=== PATIENT | male | born 1980 | race Two or more races ===

== ENCOUNTER 2024-04-29 11:01 | Inpatient (IN) | payer MEDICAID, OTHER ==
[~2024-04-29] VITALS: Ht 175.3 cm; Wt 97.9 kg
--- NOTE | 2024-04-29 11:17 | ED.PDOC ---
HPI Comments 43y M who presents to the ED for chief complaint of palpitations. Pt states he was sleeping this AM, and started to have palpitations that woke him from his sleep. Pt states his palpitations have been constant since and states he started to have chest pain and came to the ED for further evaluation. Pt in the ED, has chest pain while taking deep breaths but otherwise denies any other exacerbating or relieving factors/ Pt otherwise denies any recent travel. Pt otherwise has noted history of HTN and denies these symptoms in the past. Pt otherwise denies shortness of breath, cough, fever, chills, headache, or dizziness. Pt otherwise denies any recent sick contacts. Pt denies any other symptoms at this time. Chief Complaint: Chest Pain Time Seen by MD: 11:14 Reviewed Notes: Medications, Allergies Allergies: Coded Allergies: NO KNOWN ALLERGIES (Unverified , 04/29/24) Information Source: Patient, Spouse Mode of Arrival: Ambulatory Brought in by: self Past Medical History PAST MEDICAL HISTORY: HTN Surgical History: Denies all surgeries Family History Family History: Unknown Social History Smoker: Non-Smoker Alcohol: Denies ETOH Use Drugs: Denies Drug Use Lives In: Home Constitutional: denies: chills, diaphoresis, fatigue, fever, malaise, sweats, weakness, others EENTM: denies: blurred vision, double vision, ear bleeding, ear discharge, ear drainage, ear pain, ear ringing, eye pain, eye redness, hearing loss, mouth pain, mouth swelling, nasal discharge, nose bleeding, nose congestion, nose pain, photophobia, tearing, throat pain, throat swelling, voice changes, others Respiratory: denies: cough, hemoptysis, orthopnea, SOB at rest, shortness of breath, SOB with excertion, stridor, wheezing, others Cardiovascular: reports: chest pain, palpitations; denies: dizzy spells, diaphoresis, Dyspnea on exertion, edema, irregular heart beat, left arm pain, lightheadedness, PND, syncope, others Gastrointestinal: denies: abdomen distended, abdominal pain, blood streaked bowels, constipated, diarrhea, dysphagia, difficulty swallowing, hematemesis, melena, nausea, poor appetite, poor fluid intake, rectal bleeding, rectal pain, vomiting, others Genitourinary: denies: burning, dysuria, flank pain, frequency, hematuria, incontinence, penile discharge, penile sore, pain, testicle pain, testicle swelling, urgency, others Neurological: denies: dizziness, fainting, headache, left sided numbness, left sided weakness, numbness, paresthesia, pre-existing deficit, right sided nu mbness, right sided weakness, seizure, speech problems, tingling, tremors, weakness, others Musculoskeletal: denies: back pain, gout, joint pain, joint swelling, muscle pain, muscle stiffness, neck pain, others Integumetry: denies: bruises, change in color, change in hair/nails, dryness, laceration, lesions, lumps, rash, wounds, others Allergic/Immunocompromised: denies: Difficulty Healing, Frequent Infections, Hives, Itching, others Hematologic/Lymphatic: denies: anemia, blood clots, easy bleeding, easy bruising, swollen glands, others Endocrine: denies: excessive hunger, excessive sweating, excessive thirst, excessive urination, flushing, intolerance to cold, intolerance to heat, unexplained weight gain, unexplained weight loss, others Psychiatric: denies: anxiety, bipolar disorder, depression, hopeless, panic disorder, schizophrenia, sleepless, suicidal, others All Other Systems: Reviewed and Negative Physical Exam General Appearance: Moderate Distress, Other (pt is diaphoretic, appears mildly anxious) HEENT: Normal ENT Inspection, Pharynx Normal, TMs Normal Neck: Full Range of Motion, Non-Tender, Normal, Normal Inspection Respiratory: Chest Non-Tender, Lungs Clear, No Accessory Muscle Use, No Respiratory Distress, Normal Breath Sounds Cardiovascular: Tachycardia Breast Exam: Deferred Gastrointestinal: No Organomegaly, Non Tender, No Pulsatile Mass, Normal Bowel Sounds, Soft Genitalia: Deferred Pelvic: Deferred Rectal: Deferred Extremities: Other (no noted calf tenderness) Musculoskeletal : Apperance: Normal Neurologic: Alert, sonar watchstander II-XII nml as Tested, No Motor Deficits, Normal Affect, Normal Mood, No Sensory Deficits Cerebellar Function: Normal Reflexes: Normal Skin: Dry, Normal Color, Warm Lymphatic: No Adenopathy Was a procedure done? Was a procedure done?: No CP Differential Dx Differential Diagnosis: A-fib, A-Flutter, Angina, Anxiety / Panic Attack, Atrial Dysrhythmia, PVC's Differential Diagnosis: HTN Essential, HTN Accelerated Differential Diagnosis: Angina, Chest Wall Pain, Costochondritis, Myocardial Infarction, Pericarditis, Pneumonia, Pneumothorax, Pulmonary Embolus X-Ray, Labs, Meds, VS Vital Signs Date Time Temp Pulse Resp B/P (MAP) Pulse Ox O2 Delivery O2 Flow Rate FiO2 04/29/24 12:20 118 04/29/24 11:31 205/119 04/29/24 11:31 127 205/119 04/29/24 11:28 98.0 98 20 164/123 (137) 96 04/29/24 11:28 130 Lab Test 04/29/24 11:00 Range/Units White Blood Count 11.2 H 4.4-10.8 10^3/uL Red Blood Count 6.29 H 4.5-5.90 10^6/uL Hemoglobin 18.5 H 13.5-17.5 g/dL Hematocrit 53.6 H 41.0-53.0 % Mean Corpuscular Volume 85.1 80.0-100.0 fL Mean Corpuscular Hemoglobin 29.3 28.0-32.0 pg Mean Corpuscular Hemoglobin Concent 34.5 32.0-36.0 g/dL Red Cell Distribution Width 12.9 11.8-14.3 % Platelet Count 248 140-450 10^3/uL Mean Platelet Volume 9.1 6.9-10.8 fL Neutrophils (%) (Auto) 80.3 H 37.0-80.0 % Lymphocytes (%) (Auto) 15.5 10.0-50.0 % Monocytes (%) (Auto) 3.6 0.0-12.0 % Eosinophils (%) (Auto) 0.2 0.0-7.0 % Basophils (%) (Auto) 0.4 0.0-2.0 % Neutrophils # (Auto) 9.0 H 1.6-8.6 10 ^3/uL Lymphocytes # (Auto) 1.7 0.4-5.4 10 ^3/uL Monocytes # (Auto) 0.4 0-1.3 10 ^3/uL Eosinophils # (Auto) 0 0-0.8 10 ^3/uL Basophils # (Auto) 0 0-0.2 10 ^3/uL Nucleated Red Blood Cells 0.1 % Sodium Level 135 L 136-145 mmol/L Potassium Level 4.1 3.5-5.1 mmol/L Chloride Level 101 98-107 mmol/L Carbon Dioxide Level 21 20-31 mmol/L Anion Gap 13 5-15 Blood Urea Nitrogen 11 9-23 mg/dL Creatinine 0.70 0.700-1.30 mg/dL Glomerular Filtration Rate Calc 118 >90 mL/min BUN/Creatinine Ratio 15.7 10.0-20.0 Serum Glucose 280 H 74-106 mg/dL Calcium Level 9.9 8.7-10.4 mg/dL Troponin I High Sensitivity 3 L </=54 ng/L Current Medications Medications (Trade) Dose Ordered Sig/Tonja Route Start Time Stop Time Status Last Admin Metoprolol Tartrate (Lopressor) 5 mg ONCE ONCE IV 04/29/24 11:15 04/29/24 11:16 DC 04/29/24 11:31 Aspirin 325 mg ONCE ONCE PO 04/29/24 11:15 04/29/24 11:16 DC 04/29/24 11:32 Nitroglycerin (Ntrostat Sublingual) 0.4 mg ONCE ONCE SL 04/29/24 11:15 04/29/24 11:16 DC 04/29/24 11:31 Alprazolam (Xanax Tablet) 0.25 mg ONCE ONCE PO 04/29/24 11:15 04/29/24 11:16 DC 04/29/24 11:31 [place] [id number] Ph: [phone] DIAGNOSTIC IMAGING Diagnostic Imaging Report : [id number] Signed PATIENT: STEPHY PARRY ACCT: [id number] UNIT: [id number] : 1980 LOC: ER ROOM / BED: / AGE / SEX: 43 / M ADM STATUS: REG ER SERVICE 1113 ORDERING PHYSICIAN: ANJUM DONOVAN MD PROCEDURE(s): CXRP - CHEST PORTABLE REASON: cp ORDER NUMBER(s): [id number], ACCESSION NUMBER(s): [id number] CHEST RADIOGRAPH Indication: cp Technique: Single frontal view of the chest was obtained Comparison: None FINDINGS: Lines and Tubes: None Lungs: No focal consolidation. Pleura: No effusion. No pneumothorax. Cardiomediastinal contours: Unremarkable Bones: No acute osseous abnormality. IMPRESSION: 1. No acute cardiopulmonary disease. ATED BY: LUIS REES MD DICTATED DATE/TIME: 04/29/24 1138 SIGNED BY: LUIS REES MD SIGNED DATE/TIME: 04/29/248 CC: Time of 1ST Reevaluation: 11:45 Reevaluation 1ST: Unchanged Patient Education/Counseling: Diagnosis, Treatment, Prognosis, Need For Follow Up Family Education/Counseling: Diagnosis, Treatment, Prognosis, Need For Follow Up, No Family Present Additional Information - I reviewed the following notes from patient's past medical encounters: - The following tests were ordered, and results were reviewed by me: (Labs, X- Ray, EKG): troponin x3,EKG x 3, BMP, CBC, chest x-ray, - Additional information was gathered from interviewing the following independent Historian: (Family, Other Providers, EMT): - I reviewed and agreed with the following test results read by other provider: (X-ray, CT, US): radiologist - I discussed treatments and results with medical personnel and: (consultants, family) pt presented diaphoretic, with chest pain, tachycardic. he was given labetalol which improved his symptoms and HR. repeat ekg dose not show dynamic changes. however, he will need to be admitted for further cardiac workups Departure 1 Departure Time of Disposition: 12:28 Impression: Primary Impression: Unstable angina Additional Impression: Tachycardia Disposition: 09 ADMITTED INPATIENT Admit to: Tele Condition: Serious Critical Care Note Critical Care Time?: Yes (45 min-critical care time only) Critical care comment: due to concerns for patient's condition deteriorating, the care required my highest level of attention and readiness to intervene. i reviewed any external notes, communicatd with medical personnel, assessed the pt, ordered the proper tests and treatments, and reassessed for response, formulated a plan of care. the critical care time excludes any procedures Stability Stability form required: No Heart Score Heart Score: Heart Score Response (Comments) Value History Highly Suspicious 2 EKG Repolarization Disturb 1 Age <45 0 Risk Factors 1 or 2 risk factors 1 Troponin Normal limit 0 Total 4 I personally scribed for ANJUM DONOVAN MD ([email or web address]) on 04/29/24 at 11:17. Electronically submitted by Loyda Emanuel ([email or web address]). I personally scribed for ANJUM DONOVAN MD ([facility]) on 04/29/24 at 11:21. Electronically submitted by Loyda Emanuel ([email or web address]). I personally scribed for ANJUM DONOVAN MD ([facility]) on 04/29/24 at 11:42. Electronically submitted by Loyda Emanuel ([email or web address]). ANJUM DONOVAN MD Apr 29, 2024 11:17
[2024-04-29] MEDS: METOPROLOL TARTRATE 1MG/1ML-5ML VIAL IV ONE (11:31)
[2024-04-29] MEDS: NITROGLYCERIN 0.4 MG SL TAB SL ONE (11:31)
[2024-04-29] MEDS: ALPRAZolam 0.25 MG TAB PO ONE (11:31)
[2024-04-29] MEDS: ASPirin 325 MG TAB PO ONE (11:32)
--- NOTE | 2024-04-29 11:40 | DVH ---
CHEST RADIOGRAPH Indication: cp Technique: Single frontal view of the chest was obtained Comparison: None FINDINGS: Lines and Tubes: None Lungs: No focal consolidation. Pleura: No effusion. No pneumothorax. Cardiomediastinal contours: Unremarkable Bones: No acute osseous abnormality. IMPRESSION: 1. No acute cardiopulmonary disease.
[2024-04-29 11:41] LABS: Basophils # (auto) 0 10 ^3/uL (0-0.2); Basophils % (auto) 0.4 % (0.0-2.0); Eosinophils # (auto) 0 10 ^3/uL (0-0.8); Eosinophils % (auto) 0.2 % (0.0-7.0); Hematocrit 53.6 % (41.0-53.0); Hemoglobin 18.5 g/dL (13.5-17.5); Lymphocytes # (auto) 1.7 10 ^3/uL (0.4-5.4); Lymphocytes % (auto) 15.5 % (10.0-50.0); Mean Corpuscular Hemoglobin 29.3 pg (28.0-32.0); Mean Corpuscular Hgb Conc. 34.5 g/dL (32.0-36.0); Mean Corpuscular Volume 85.1 fL (80.0-100.0); Monocytes # (auto) 0.4 10 ^3/uL (0-1.3); Monocytes % (auto) 3.6 % (0.0-12.0); Neutrophils % (auto) 80.3 % (37.0-80.0); Nucleated Red Blood Cells % 0.1 %; Platelet Count (auto) 248 10^3/uL (140-450); Red Blood Cells 6.29 10^6/uL (4.5-5.90); Red Cell Distribution Width 12.9 % (11.8-14.3); White Blood Cell 11.2 10^3/uL (4.4-10.8)
[2024-04-29 11:46] LABS: Chloride 101 mmol/L (98-107); Potassium 4.1 mmol/L (3.5-5.1)
[2024-04-29 11:47] LABS: Anion Gap 13 (5-15); Calcium 9.9 mg/dL (8.7-10.4); Carbon Dioxide 21 mmol/L (20-31)
[2024-04-29 11:52] LABS: BUN/Creatinine Ratio 15.7 (10.0-20.0); Blood Urea Nitrogen 11 mg/dL (9-23)
[2024-04-29 11:59] LABS: Sodium 135 mmol/L (136-145)
[2024-04-29 12:00] LABS: Glucose 280 mg/dL (74-106)
--- NOTE | 2024-04-29 12:21 | ECG ---
[facility] Test Date: 2024-04-29 Test Time: 12:20:07 Pat Name: STEPHY PARRY Department: ER Room: 0249T Gender: M Supervisor Dock: LUL : 1980 Requested By: ANJUM DONOVAN Order Number: [id number] Reading MD: Billy Joaquin Measurements Intervals [place] Rate: 118 P: 40 WA: 145 QRS: 12 QRSD: 84 T: 60 QT: 319 QTc: 448 Interpretive Statements Sinus tachycardia Electronically Signed On 04-30-2024 14:19:23 PST by Billy Joaquin Please click the below link to view image of tracing.
[2024-04-29] MEDS ORDERED: ONDANSETRON HCL 4 MG/2 ML VIAL IV PRN (14:00)
[2024-04-29] MEDS ORDERED: DEXTROSE (50%) 50ML SYRG IV PRN ×2 (14:00→14:45)
[2024-04-29] MEDS ORDERED: NITROGLYCERIN 0.4 MG SL TAB SL PRN ×2 (14:00→14:45)
[2024-04-29] MEDS: SODIUM CHLORIDE 0.9% 1,000 ML IV SCH (14:20)
[2024-04-29 15:03] LABS: INR 1.04 (0.9-1.15)
[2024-04-29 15:07] LABS: Magnesium 1.9 mg/dL (1.6-2.6)
[2024-04-29 15:08] LABS: Phosphorus 3.1 mg/dL (2.4-5.1)
--- NOTE | 2024-04-29 15:31 | DVH ---
EXAM: CT Angiography Chest With Intravenous Contrast CLINICAL INDICATION: R/O PE TECHNIQUE: Axial computed tomographic angiography images of the chest with intravenous contrast. Th is CT exam was performed using one or more of the following dose reduction techniques: automated exp osure control, adjustment of the mA and/or kV according to patient size, and/or use of iterative claudio nstruction technique. MIP reconstructed images were created and reviewed. CONTRAST: 100 cc Omnipaque 350 RADIATION DOSE: CTDlvol= 28 mGy, DLP= 976 mGy-cm COMPARISON: None FINDINGS: LIMITATIONS: Suboptimal opacification of the pulmonary arteries. PULMONARY ARTERIES: No pulmonary embolism is identified. Some of the distal pulmonary arteries mary ot be evaluated due to suboptimal opacification. AORTA: No acute findings. No thoracic aortic aneurysm. LUNGS AND PLEURAL SPACES: Dependent atelectasis. Lingular atelectasis or scarring. No mass. No sig nificant effusion. No pneumothorax. HEART: Unremarkable. No cardiomegaly. No significant pericardial effusion. No evidence of RV dysf unction. BONES/JOINTS: No acute fracture. No dislocation. SOFT TISSUES: Unremarkable. LYMPH NODES: Unremarkable. No enlarged lymph nodes. LIVER: Fatty infiltration of the liver. OTHER FINDINGS: . . IMPRESSION: No pulmonary embolism is identified. Some of the distal pulmonary arteries cannot be evaluated due t o suboptimal opacification. HS:Y
--- NOTE | 2024-04-29 15:54 | DVHINCON2 ---
Date Seen: Apr 29, 2024 Referring Physician MÓNICA Macias Reason for Consultation Acute chest pain evaluate for ACS History of Present Illness This is a pleasant Urdu-speaking mostly male who presented to the emergency room with a chief complaint of palpitations. The patient reports he awoke with a sudden onset of palpitations prompting him to attend the emergency room for further evaluation. Denies chest pain, diaphoresis, shortness of breath, or syncopal events. Per at bedside the patient had a few beers, four-five, last night given festivities. He underwent multiple 12 lead electrocardiogram revealing a sinus tachycardia rhythm suggestive of left ventricular hypertrophy. Serial troponin levels are negative. At time of assessment, the patient was found with a systolic blood pressure in the 160s mmHg. States he ran out of his antihypertensive therapy approximately a year ago given lack of insurance. Sign ificant medical history includes hypertension and obesity. Past Medical History Past medical history reviewed. No other significant than mentioned above. Past Surgical History Past surgical history reviewed. No other significant than mentioned above. Family History Family history reviewed. Not significant for cardiovascular disease. Social History Denies the use of illicit drugs or tobacco use. Admits to occasional alcohol use including 4-5 beers last night. Allergies: Coded Allergies: NO KNOWN ALLERGIES (Unverified , 04/29/24) Home Meds Denies any home medications. Current Medications Current Medications Medications (Trade) Dose Ordered Sig/Tonja Route PRN Reason Start Time Stop Time Status Last Admin Sodium Chloride 1,000 ml @ 100 mls/hr Q10H IV 04/29/24 14:00 04/29/24 14:20 Aspirin 81 mg DAILY PO 04/30/24 10:00 Atorvastatin Calcium (Lipitor) 40 mg HS PO 04/29/24 22:00 Metoprolol Tartrate (Lopressor Tablet) 25 mg Q12HR PO 04/29/24 22:00 Acetaminophen (Tylenol Tablet) 325 mg Q4HP PRN PO FOR HEADACHE 04/29/24 14:00 Docusate Sodium (Colace Capsule) 100 mg DAILY PO 04/30/24 10:00 Nitroglycerin (Ntrostat Sublingual) 0.4 mg Q5MINP PRN SL FOR CHEST PAIN 04/29/24 14:00 Ondansetron HCl (Zofran) 4 mg Q4HP PRN IV NAUSEA / VOMITING 04/29/24 14:00 Diagnostic Test (Pha) (Accu-Chek Comfort Curve T) 1 strip ACHS 04/29/24 17:00 04/29/24 14:51 DC Insulin Human Regular (InsuLIN R) ACHS SC 04/29/24 17:00 04/29/24 14:51 DC Dextrose 50 ml UD PRN IV Blood Sugar LESS THAN 60 04/29/24 14:00 04/29/24 14:51 DC Enoxaparin Sodium (Lovenox) 90 mg BID SC 04/30/24 16:00 Nitroglycerin (Ntrostat Sublingual) 0.4 mg Q5MINP PRN SL FOR CHEST PAIN 04/29/24 14:45 Diagnostic Test (Pha) (Accu-Chek Comfort Curve T) 1 strip ACHS 04/29/24 17:00 Insulin Human Regular (InsuLIN R) ACHS SC 04/29/24 17:00 Dextrose 50 ml UD PRN IV Blood Sugar LESS THAN 60 04/29/24 14:45 Review of Systems Constitutional: No symptom reported Ears, Nose, & Throat: No symptom reported Eyes: No symptom reported Neurological: No symptoms reported Pulmonary/Respiratory: No symptom reported Cardiovascular: Palpitations Gastrointestinal: No symptom reported Genitourinary: No symptom reported Musculoskeletal: No symptom reported Skin: No symptom reported Psychiatric: No symptom reported Endocrine: No symptom reported Hemotologic/Lymphatic: No symptom reported Vital Signs Vital Signs Date Time Temp Pulse Resp B/P (MAP) Pulse Ox O2 Delivery O2 Flow Rate FiO2 04/29/24 14:45 115 21 140/94 (109) 91 04/29/24 11:28 98.0 Physical Exam General Appearance: Cooperative. Well developed. Obese. In no acute distress Head Exam: Normal inspection Neck Exam: Normal inspection. Non-tender. Normal alignment Pulmonary/Respiratory: Chest non-tender. Clear bilateral breath sounds Cardiovascular/Chest: Regular rate and rhythm. S1, S2. Sinus tachycardia. No murmurs. No JVD. Peripheral Pulses: 2+ Radial (R). 2+ Radial (L). 2+ Pedal (R). 2+ Pedal (L) Abdominal Exam: Normal bowel sounds. Soft. Nontender. No hepatospenomegaly. No masses Ankle Exam: Negative ankle edema Lower extremities: Negative lower extremity edema Neuro/Mental Status: A&O x4. Coherent Thoughts/Psych: Normal thought pattern. Appropriate mood and affect. Good judgement and insight Appearance: In no acute distress Skin Exam: Normal inspection. Normal color. Warm. Dry Labs/Diagnostic Data Labs Test 04/29/24 12:20 04/29/24 11:00 Range/Units Troponin I High Sensitivity 3 L </=54 ng/L White Blood Count 11.2 H 4.4-10.8 10^3/uL Red Blood Count 6.29 H 4.5-5.90 10^6/uL Hemoglobin 18.5 H 13.5-17.5 g/dL Hematocrit 53.6 H 41.0-53.0 % Mean Corpuscular Volume 85.1 80.0-100.0 fL Mean Corpuscular Hemoglobin 29.3 28.0-32.0 pg Mean Corpuscular Hemoglobin Concent 34.5 32.0-36.0 g/dL Red Cell Distribution Width 12.9 11.8-14.3 % Platelet Count 248 140-450 10^3/uL Mean Platelet Volume 9.1 6.9-10.8 fL Neutrophils (%) (Auto) 80.3 H 37.0-80.0 % Lymphocytes (%) (Auto) 15.5 10.0-50.0 % Monocytes (%) (Auto) 3.6 0.0-12.0 % Eosinophils (%) (Auto) 0.2 0.0-7.0 % Basophils (%) (Auto) 0.4 0.0-2.0 % Neutrophils # (Auto) 9.0 H 1.6-8.6 10 ^3/uL Lymphocytes # (Auto) 1.7 0.4-5.4 10 ^3/uL Monocytes # (Auto) 0.4 0-1.3 10 ^3/uL Eosinophils # (Auto) 0 0-0.8 10 ^3/uL Basophils # (Auto) 0 0-0.2 10 ^3/uL Nucleated Red Blood Cells 0.1 % Prothrombin Time 11.0 9.3-11.8 sec Prothrombin Time INR 1.04 0.9-1.15 Sodium Level 135 L 136-145 mmol/L Potassium Level 4.1 3.5-5.1 mmol/L Chloride Level 101 98-107 mmol/L Carbon Dioxide Level 21 20-31 mmol/L Anion Gap 13 5-15 Blood Urea Nitrogen 11 9-23 mg/dL Creatinine 0.70 0.700-1.30 mg/dL Glomerular Filtration Rate Calc 118 >90 mL/min BUN/Creatinine Ratio 15.7 10.0-20.0 Serum Glucose 280 H 74-106 mg/dL Hemoglobin A1c 10.9 H <5.7 % A1C Calcium Level 9.9 8.7-10.4 mg/dL Phosphorus Level 3.1 2.4-5.1 mg/dL Magnesium Level 1.9 1.6-2.6 mg/dL Assessment Palpitations in the setting of sinus tachycardia rhythm Newly diagnosed diabetes mellitus, HgbA1c 10.9% Hypertensive urgency Rule out structural heart disease Rule out acute alcoholic intoxication Suboptimal medical therapy Obesity Plan/Recommendation We will continue the following plan/recommendations (Dr. Alexandra): * Echocardiogram to rule out structural heart disease * Aggressive blood pressure control for a target SBP <140 mmHg * Initiate Metoprolol XL and ACEI. Up-titrate as necessary * Initiate NS bolus x 1L, maintenance at 100 mls/hr. Magnesium rider x 1 * Monitor ECG changes and notify * Tight glycemic control * DVT/VTE prophylaxis * UDS, blood alcohol, lipid panel, TSH levels Thank you for allowing us to participate in this patient's care. Please call if you have any questions or concerns. This medical document was created using an electronic medical record system with voice recognition software and computerized dictation system. Although this document has been carefully reviewed, there might still be some phonetic and typographical errors. Occasional wrong-word or ``sound-alike substitutions may have occurred due to the inherent limitations of voice recognition software. These areas are purely typographical due to imperfections of the software pr ograms and do not reflect any compromise in the patient's medical care. Please read the chart carefully and recognize, using context, where these substitutions have occurred. Plan discussed with: Patient, Spouse, Other Date of Service: Apr 29, 2024 Billing Provider: JANENE ALEXANDRA MD Cardiology Common Codes: 84600-[id number] INP/OBS CARE (High) VILLAVICENCIOLARON VOGEL [facility] Apr 29, 2024 15:54
[2024-04-29 16:01] VITALS: PULSE 114; RESP 16; O2SAT 95
[2024-04-29] MEDS: SODIUM CHLORIDE 0.9% 1,000 ML IV ONE (16:18)
[2024-04-29 16:19] LABS: HDL Cholesterol 45 mg/dL (40-59)
[2024-04-29] MEDS: LISINOPRIL 20 MG TAB PO ONE (16:19)
[2024-04-29] MEDS: ENOXAPARIN SOD 40 MG/0.4 ML SYRINGE SC ONE (16:19)
[2024-04-29] MEDS: METOPROLOL SUCCINATE XL 50 MG TAB PO ONE (16:19)
[2024-04-29 16:21] LABS: Cholesterol 255 mg/dL (< 200); Triglycerides 789 mg/dL (< 150)
[2024-04-29 16:30] VITALS: BP 161/105; PULSE 115; RESP 16; TEMP 98.5; O2SAT 95
[2024-04-29] MEDS: ACCU-CHEK COMFORT CURVE STRIP VI SCH (16:55)
[2024-04-29] MEDS ORDERED: ACCU-CHEK COMFORT CURVE STRIP VI SCH (17:00)
[2024-04-29] MEDS ORDERED: InsuLIN REG 1unit/0.01ml Soln (100units/ml) SC SCH (17:00)
[2024-04-29] MEDS: MAGNESIUM SULFATE 1GM/100ML 100 ML IV ONE (17:04)
[2024-04-29] MEDS: hydrALAZINE HCL 20 MG/ML VL IV PRN (17:26)
[2024-04-29] MEDS: InsuLIN REG 1unit/0.01ml Soln (100units/ml) SC SCH (17:45)
--- NOTE | 2024-04-29 17:56 | DVHHP2 ---
History of Present Illness Reason for Visit: Palpitation History of Present Illness 43-year-old male past medical history hypertension no surgical history chief complaint patient complain of left chest pain that started this morning along with palpitations. Patient states he has has a little bit of shortness of the breath with the palpitations. He states since this morning his symptoms continued to be constant nothing makes it better nothing makes it worse he denies any dizziness no headache. Denies any fever no cough. Patient does say his chest pain gets worse when he is taking a deep breath in. When evaluating patient's labs and imaging patient was given nitro aspirin white count was m ildly elevated at 11.2 hemoglobin was 18.5 53.6 sodium was 135 glucose was two 80 without diagnosis of diabetes chest x-ray was unremarkable troponin was negative. With these findings we will admit patient ask for Cardiology evaluation also we will do workup for PE Past Medical History Hypertension Past Surgical History Denies surgical history Family History Reviewed, non-contributory to the management of this case. Past Social History The patient lives at home, denies smoking, alcohol or illicit drugs abuse. Review of Systems Constitutional: No: Fever, Chills, Sweats, Weakness, Malaise, Other Eyes: No: Pain, Vision change, Conjunctivae inflammation, Eyelid inflammation, Other, Redness ENT: No: Ear pain, Ear discharge, Nose pain, Nose discharge, Nose congestion, Mouth pain, Mouth swelling, Throat pain, Throat swelling, Other Respiratory: Shortness of breath; No: Cough, Dry, SOB with excertion, Wheezing, Hemoptysis, Pleuritic Pain, Sputum, Wheezing, Other Cardiovascular: Chest Pain, Palpitations; No: Orthopnea, Paroxysmal Noc. Dyspnea, Edema, Lt Headedness, Other Gastrointestinal: No: Nausea, Vomiting, Abdominal Pain, Diarrhea, Constipation, Melena, Hematochezia, Other Genitourinary: No Dysuria, No Frequency, No Incontinence, No Hematuria, No R etention, No Other Musculoskeletal: No: other, neck pain, shoulder pain, arm pain, back pain, hand pain, leg pain, foot pain Skin: No: Rash, Lesions, Jaundice, Bruising, Other Neurological: No: Weakness, Numbness, Incoordination, Change in speech, Confusion, Seizures, Other Allergies: Coded Allergies: NO KNOWN ALLERGIES (Unverified , 04/29/24) Medications Current Medications Medications Dose Ordered Sig/Tonja Route Start Time Stop Time Status Last Admin Dose Admin Sodium Chloride 1,000 ml @ 100 mls/hr Q10H IV 04/29/24 14:00 04/29/24 14:20 100 MLS/HR Aspirin 81 mg DAILY PO 04/30/24 10:00 Atorvastatin Calcium 40 mg HS PO 04/29/24 22:00 Acetaminophen 325 mg Q4HP PRN PO 04/29/24 14:00 Docusate Sodium 100 mg DAILY PO 04/30/24 10:00 Ondansetron HCl 4 mg Q4HP PRN IV 04/29/24 14:00 Nitroglycerin 0.4 mg Q5MINP PRN SL 04/29/24 14:45 Diagnostic Test (Pha) 1 strip ACHS 04/29/24 17:00 04/29/24 16:55 1 STRIP Insulin Human Regular ACHS SC 04/29/24 17:00 Dextrose 50 ml UD PRN IV 04/29/24 14:45 Metoprolol Succinate 25 mg DAILY PO 04/30/24 10:00 Lisinopril 20 mg DAILY PO 04/30/24 10:00 Enoxaparin Sodium 40 mg DAILY SC 04/30/24 10:00 Hydralazine HCl 10 mg Q6HP PRN IV 04/29/24 16:00 04/29/24 17:26 10 MG Exam Vital Signs Vital Signs Date Time Temp Pulse Resp B/P (MAP) Pulse Ox O2 Delivery O2 Flow Rate FiO2 04/29/24 17:26 161/95 04/29/24 16:30 115 16 95 Room Air* 0 21 04/29/24 16:30 98.5 98.5 General Appearance: Alert, Oriented X3, Cooperative, mild distress HEENT: Atraumatic, PERRLA, EOMI, Mucous membr. moist/pink Respiratory: Clear to auscultation, Normal air movement Cardiovascular: Regular rate, Normal S1, Normal S2, No murmurs, Other (Tachycardia) Abdominal: Normal bowel sounds, Soft, No tenderness, No hepatospenomegaly, No masses Extremities: No clubbing, No cyanosis, No edema, Normal pulses, No tenderness/swelling Skin: No rashes, No breakdown, No significant lesion Neuro: Normal speech, Strength at 5/5 X4 ext, Normal tone, Sensation intact, Cranial nerves 3-12 NL Psych/Mental Status: Mental status NL, Mood NL Labs/Xrays Chest x-ray unremarkable I reviewed labs, imaging CT scan abdomen pelvis, EKG and all diagnostic studies on this patient from ED records and the medical chart Labs Test 04/29/24 16:53 04/29/24 15:56 04/29/24 12:20 04/29/24 11:00 Range/Units POC Glucose 288 H 70-106 mg/dl Plasma/Serum Blood Alcohol < 3.0 <10 mg/dL Troponin I High Sensitivity 3 L </=54 ng/L White Blood Count 11.2 H 4.4-10.8 10^3/uL Red Blood Count 6.29 H 4.5-5.90 10^6/uL Hemoglobin 18.5 H 13.5-17.5 g/dL Hematocrit 53.6 H 41.0-53.0 % Mean Corpuscular Volume 85.1 80.0-100.0 fL Mean Corpuscular Hemoglobin 29.3 28.0-32.0 pg Mean Corpuscular Hemoglobin Concent 34.5 32.0-36.0 g/dL Red Cell Distribution Width 12.9 11.8-14.3 % Platelet Count 248 140-450 10^3/uL Mean Platelet Volume 9.1 6.9-10.8 fL Neutrophils (%) (Auto) 80.3 H 37.0-80.0 % Lymphocytes (%) (Auto) 15.5 10.0-50.0 % Monocytes (%) (Auto) 3.6 0.0-12.0 % Eosinophils (%) (Auto) 0.2 0.0-7.0 % Basophils (%) (Auto) 0.4 0.0-2.0 % Neutrophils # (Auto) 9.0 H 1.6-8.6 10 ^3/uL Lymphocytes # (Auto) 1.7 0.4-5.4 10 ^3/uL Monocytes # (Auto) 0.4 0-1.3 10 ^3/uL Eosinophils # (Auto) 0 0-0.8 10 ^3/uL Basophils # (Auto) 0 0-0.2 10 ^3/uL Nucleated Red Blood Cells 0.1 % Prothrombin Time 11.0 9.3-11.8 sec Prothrombin Time INR 1.04 0.9-1.15 Sodium Level 135 L 136-145 mmol/L Potassium Level 4.1 3.5-5.1 mmol/L Chloride Level 101 98-107 mmol/L Carbon Dioxide Level 21 20-31 mmol/L Anion Gap 13 5-15 Blood Urea Nitrogen 11 9-23 mg/dL Creatinine 0.70 0.700-1.30 mg/dL Glomerular Filtration Rate Calc 118 >90 mL/min BUN/Creatinine Ratio 15.7 10.0-20.0 Serum Glucose 280 H 74-106 mg/dL Hemoglobin A1c 10.9 H <5.7 % A1C Calcium Level 9.9 8.7-10.4 mg/dL Phosphorus Level 3.1 2.4-5.1 mg/dL Magnesium Level 1.9 1.6-2.6 mg/dL Triglycerides Level 789 H < 150 mg/dL Cholesterol Level 255 H < 200 mg/dL LDL Cholesterol < 100 mg/dL HDL Cholesterol 45 40-59 mg/dL Thyroid Stimulating Hormone (TSH) 0.29 L 0.55-4.78 uIU/mL Assessment/Plan Assessment/Plan Acute chest pain rule on nstemi trop negative ekg no stemi ordered Cards consult pending eval and recs ordered metoprolol asa atorvastatin ordered Echocardiogram follow-up results ordered ddimer fu results ordered morphine as needed for pain, ordered nitro prn ordered lovenox until pe ruled out ordered lipid panel acute hypertension emergency Ordered metoprolol for now acute elevation in blood glucose without hx of dm ordered hemoglobin a1c ISS with accucheck acute elevation in hemoglobin ordered iv hydration for now FEN/PPx No GI prophylaxis since no history of GI bleed or GERD's lovenox SCDs Diet Plan admit to telemetry cards consult follow-up recs Plan discussed with: Patient My Orders Orders - SHEILA WAGGONER DNP Procedure Category Date Status Time Code Status CODE 04/29/24 Transmitted 13:55 Vital Signs JESSE 04/29/24 In Process 13:55 Diving Instructor JESSE 04/29/24 In Process 13:55 May Elevate Hob ____ JESSE 04/29/24 In Process Degrees 13:55 Cardiac DIET 04/29/24 Transmitted Diet-2gna,Lofat,Lochol Dinner Sodium Chloride 0.9% PHA 04/29/24 In Process 14:00 Aspirin Tablet PHA 04/30/24 In Process 10:00 Atorvastatin (Lipitor) PHA 04/29/24 In Process 22:00 Acetaminophen Tablet PHA 04/29/24 In Process (Tylenol Tablet) 14:00 Docusate Sodium PHA 04/30/24 In Process Capsule (Colace 10:00 Pulse Oximeter Check RT 04/29/24 Logged 13:55 Oxygen By Nasal RT 04/29/24 Transmitted Cannula 13:55 Complete Blood Count LAB 04/30/24 Verified 04:00 Comprehensive LAB 04/30/24 Verified Metabolic Panel 04:00 Ondansetron Hcl PHA 04/29/24 In Process (Zofran) 14:00 Cardiac JESSE 04/29/24 In Process Rehabilitation - Outpa * Cardiology Consult CONS 04/29/24 Transmitted 13:[address] 04/29/24 Resulted Contrast 14:12 Admit ADMIT 04/29/24 Transmitted 14:31 Nitroglycerin PHA 04/29/24 In Process Sublingual (Ntrostat 14:45 Stat Ekg For Chest JESSE 04/29/24 In Process Pain 14:31 Notify Of Changes JESSE 04/29/24 In Process From Base 14:31 Pharmacy Specialist For JESSE 04/29/24 In Process 24 Hours 14:31 Emergency Dysrhythmia [facility] 04/29/24 In Process Protocol 14:31 Rhythm Strips Once JESSE 04/29/24 In Process Every Shift 14:31 Oxygen By Nasal RT 04/29/24 Transmitted Cannula 14:31 Glucose Blood PHA 04/29/24 In Process (Accu-Chek Comfort 17:00 Insulin R (Human) PHA 04/29/24 In Process (Insulin R) 17:00 Dextrose 50% Syringe PHA 04/29/24 In Process 14:45 Date of Service: Apr 29, 2024 Billing Provider: SHEILA WAGGONER DNP Common Visit Codes: [id number] INP/OBS CARE (HIGH) SHEILA WAGGONER DNP Apr 29, 2024 17:56
[2024-04-29 19:06] LABS: Free T3 3.4 pg/mL (2.3-4.2); Free T4 (Free Thyroxine) 0.99 ng/dL (0.89-1.76)
[2024-04-29 20:00] VITALS: PULSE 81; PULSE 82; RESP 16
[2024-04-29 21:00] VITALS: BP 130/73; PULSE 118; RESP 20; TEMP 98; O2SAT 95
[2024-04-29] MEDS ORDERED: METOPROLOL TARTRATE 25 MG TAB PO SCH (22:00)
[2024-04-29] MEDS: ATORVASTATIN 20 MG TAB PO SCH (22:12)
[2024-04-30] VITALS (7 sets, daily range): BP systolic 128–169; BP diastolic 78–103; PULSE 91–107; RESP 17–18; TEMP 97.7–98.9; O2SAT 92–100
[2024-04-30 06:32] LABS: Basophils # (auto) 0.1 10 ^3/uL (0-0.2); Basophils % (auto) 0.9 % (0.0-2.0); Eosinophils # (auto) 0.2 10 ^3/uL (0-0.8); Eosinophils % (auto) 1.8 % (0.0-7.0); Hematocrit 48.2 % (41.0-53.0); Hemoglobin 16.9 g/dL (13.5-17.5); Lymphocytes # (auto) 2.9 10 ^3/uL (0.4-5.4); Lymphocytes % (auto) 32.2 % (10.0-50.0); Mean Corpuscular Hgb Conc. 35.1 g/dL (32.0-36.0); Mean Corpuscular Volume 85.6 fL (80.0-100.0); Monocytes # (auto) 0.7 10 ^3/uL (0-1.3); Monocytes % (auto) 8.1 % (0.0-12.0); Neutrophils # (auto) 5.1 10 ^3/uL (1.6-8.6); Nucleated Red Blood Cells % 0.2 %; Platelet Count (auto) 229 10^3/uL (140-450); Red Blood Cells 5.63 10^6/uL (4.5-5.90); Red Cell Distribution Width 12.7 % (11.8-14.3)
[2024-04-30 07:15] LABS: Albumin 4.1 g/dL (3.2-4.8); Alkaline Phosphatase 94 U/L (46-116); Anion Gap 10 (5-15); Aspartate Aminotransferase 35 U/L (13-40); Bilirubin, Total 1.1 mg/dL (0.2-1.0); Blood Urea Nitrogen 13 mg/dL (9-23); Calcium 9.1 mg/dL (8.7-10.4); Carbon Dioxide 23 mmol/L (20-31); Chloride 104 mmol/L (98-107); Potassium 3.8 mmol/L (3.5-5.1); Sodium 137 mmol/L (136-145); Total Protein 6.8 g/dL (5.7-8.2)
[2024-04-30 07:20] LABS: Alanine Aminotransferase 47 U/L (7-40); Glucose 245 mg/dL (74-106)
[2024-04-30] MEDS ORDERED: ENOXAPARIN SOD 40 MG/0.4 ML SYRINGE SC SCH (10:00)
--- NOTE | 2024-04-30 10:31 | DVHPN2 ---
Consult Progress Note Date Seen: Apr 30, 2024 Subjective Review of Systems: CVS:Abnormal, RESPIRATORY:Normal, NEURO:Normal Other Systems: C/o left sided chest pain Objective vital signs Vital Sign Date Time Temp Pulse Resp B/P (MAP) Pulse Ox O2 Delivery O2 Flow Rate FiO2 04/30/24 09:00 98.2 92 17 148/97 (114) 95 98.2 04/29/24 20:00 Room Air* 0 21 Total Intake and Output 04/29/24 04/29/24 04/30/24 15:00 23:00 07:00 Intake Total 420 ml 800 ml Balance 420 ml 800 ml medications Current Medications Medications Dose Ordered Sig/Tonja Route Start Time Stop Time Status Last Admin Dose Admin Sodium Chloride 1,000 ml @ 100 mls/hr Q10H IV 04/29/24 14:00 04/29/24 14:20 100 MLS/HR Aspirin 81 mg DAILY PO 04/30/24 10:00 Atorvastatin Calcium 40 mg HS PO 04/29/24 22:00 04/29/24 22:12 40 MG Acetaminophen 325 mg Q4HP PRN PO 04/29/24 14:00 Docusate Sodium 100 mg DAILY PO 04/30/24 10:00 Ondansetron HCl 4 mg Q4HP PRN IV 04/29/24 14:00 Nitroglycerin 0.4 mg Q5MINP PRN SL 04/29/24 14:45 Diagnostic Test (Pha) 1 strip ACHS 04/29/24 17:00 04/30/24 05:19 1 STRIP Insulin Human Regular ACHS SC 04/29/24 17:00 04/30/24 05:16 6 UNITS Dextrose 50 ml UD PRN IV 04/29/24 14:45 Metoprolol Succinate 25 mg DAILY PO 04/30/24 10:00 Lisinopril 20 mg DAILY PO 04/30/24 10:00 Hydralazine HCl 10 mg Q6HP PRN IV 04/29/24 16:00 04/29/24 17:26 10 MG Enoxaparin Sodium 40 mg DAILY SC 04/30/24 10:00 Examination: LUNGS:Normal, CVS:Normal (HR improved, NSR), NEURO:Normal laboratory and microbiology Laboratory Tests 04/30/24 05:23 Test 04/30/24 05:23 Range/Units Serum Glucose 245 H 74-106 mg/dL Problem List/Assessment/Plan Problem List/Assessment/Plan Chest pain rule out coronary artery disease Palpitations in the setting of sinus tachycardia rhythm Newly diagnosed diabetes mellitus, HgbA1c 10.9% Newly diagnosed hypertriglyceridemia Hypertensive urgency Rule out acute alcoholic intoxication Suboptimal medical therapy Obesity Plan/Recommendation (Dr. Alexandra) * Echocardiogram revealed EF 55% * Cardiolite stress test rule out coronary ischemia, non-ischemic (see report) * Aggressive blood pressure control for a target SBP <140 mmHg * Continue Metoprolol XL and ACEI. Up-titrate as necessary * Tight glycemic control and lipid lowering agent * Strongly counseled on diet, exercise, weigh loss There is no further cardiac work-up indicated at this time. Kindly call if in need to re-consult. Thank you for allowing us to participate in this patient's care. Please call if you have any questions or concerns. This medical document was created using an electronic medical record system with voice recognition software and computerized dictation system. Although this document has been carefully reviewed, there might still be some phonetic and typographical errors. Occasional wrong-word or ``sound-alike substitutions may have occurred due to the inherent limitations of voice recognition software. These areas are purely typographical due to imperfections of the software programs and do not reflect any compromise in the patient's medical care. Please read the chart carefully and recognize, using context, where these substitutions have occurred. Plan discussed with: Patient, Other Date of Service: Apr 30, 2024 Billing Provider: JANENE ALEXANDRA MD Cardiology Common Codes: [id number] [facility] VILLAVICENCIOLARON VOGEL [facility] Apr 30, 2024 10:31
[2024-04-30] MEDS: DOCUSATE SOD 100 MG CAP PO SCH (10:45)
[2024-04-30] MEDS: ENOXAPARIN SOD 40 MG/0.4 ML SYRINGE SC SCH (10:45)
[2024-04-30] MEDS: METOPROLOL SUCCINATE XL 50 MG TAB PO SCH (10:45)
[2024-04-30] MEDS: ASPirin 81 mg TAB PO SCH (10:45)
[2024-04-30] MEDS: LISINOPRIL 20 MG TAB PO SCH (10:45)
--- NOTE | 2024-04-30 12:14 | DVHCARD ---
Cardiology Stress Test Workshe Treadmill Stress Test [place] Referring MD: MÓNICA Villavicencio Protocol: Jenaro (with cardiolite) Reason for referral: Chest Pain Target heart Rate:@85%: 157 Percent MPHR: 178 METS: 8.30 Resting Heart rate: 94 Resting Blood Pressure: 177/108 Exercise Heart Rate: 157 Exercise Blood Pressure: 207/118 Reason for Termination of Test: Shortness of breath Baseline EKG: NSR Stress EKG: Sinus tachycardia w/o discernible ST-segment changes Functional Capacity: Mildly Decreased Heart Rate Response: Adequate Blood Pressure Response: Hypertensive Clinical response: Non-ischemic Arrhythmia?: No Cardiolite Injected?: Yes ST-T Changes: Non/Minimal Probability of Inducible Ische: Perfusion result pending Comments: Jenaro protocol terminated pematurely secondary to fatigue Date of Service: Apr 30, 2024 Billing Provider: JANENE ALEXANDRA MD Cardiology Common Codes: PROCEDURE ONLY Treadmill W/Cardiolite Nuclear: [id number], INTERP, RPT LARON VILLAVICENCIO Apr 30, 2024 12:14
[2024-04-30] MEDS ORDERED: DEXTROSE (50%) 50ML SYRG IV PRN (12:30)
--- NOTE | 2024-04-30 12:47 | ECG ---
[facility] Test Date: 2024-04-29 Test Time: 11:08:49 Pat Name: STEPHY PARRY Department: ED Room: 0249T B Gender: M Legal Collector: GLO : 1980 Requested By: ANJUM DONOVAN Order Number: [id number] Reading MD: Billy Joaquin Measurements Intervals [place] Rate: 130 P: 45 WV: 139 QRS: 41 QRSD: 86 T: 117 QT: 313 QTc: 460 Interpretive Statements Sinus tachycardia Probable left atrial enlargement Anteroseptal infarct, old Nonspecific T abnormalities, lateral leads Baseline wander in lead(s) III Electronically Signed On 04-30-2024 14:18:44 PST by Billy Joaquin Please click the below link to view image of tracing.
--- NOTE | 2024-04-30 14:04 | DVHPN2 ---
Subjective History report having intermittent chest pain Reviewed: Care Plan, H&P, Labs, Medications Changes from previous H/P or p: No Changes Eyes: No Pain, No Vision change, No Conjunctivae inflammation, No Eyelid inflammation, No Other, No Redness ENT: No Ear pain, No Ear discharge, No Nose pain, No Nose discharge, No Nose congestion, No Mouth pain, No Mouth swelling, No Throat pain, No Throat swelling, No Other Cardiovascular: Chest Pain, Palpitations; No Orthopnea, No Paroxysmal Noc. Dyspnea, No Edema, No Lt Headedness, No Other Respiratory: No Cough, No Dry; Shortness of breath; No SOB with excertion, No Wheezing, No Hemoptysis, No Pleuritic Pain, No Sputum, No Other Gastrointestinal: No Nausea, No Vomiting, No Abdominal Pain, No Diarrhea, No Constipation, No Melena, No Hematochezia, No Other Genitourinary: No Dysuria, No Frequency, No Incontinence, No Hematuria, No Retention, No Other Musculoskeletal: No other, No neck pain, No shoulder pain, No arm pain, No back pain, No hand pain, No leg pain, No foot pain Skin: No Rash, No Lesions, No Jaundice, No Bruising, No Other Objective Vitals Vital Signs Date Time Temp Pulse Resp B/P (MAP) Pulse Ox O2 Delivery O2 Flow Rate FiO2 04/30/24 09:00 98.2 92 17 148/97 (114) 95 98.2 04/30/24 08:00 Room Air* 0 21 Intake/Output Intake and Output 04/30/24 07:00 Intake Total 1220 ml Balance 1220 ml Intake Oral 1020 ml IV Total 200 ml # Voids 1 General Appearance: Alert, Oriented X3, Cooperative HEENT: Atraumatic, PERRLA Cardiovascular: Normal S1, Normal S2 Abdomen: Normal bowel sounds, Soft, No tenderness, No hepatospenomegaly Musculoskeletal: Normal sensory function, Normal motor function Neuro: Normal gait, Normal speech Psych/Mental Status: Mental status NL, Mood NL Medications Current Medications Medications Dose Ordered Sig/Tonja Route Start Time Stop Time Status Last Admin Dose Admin Sodium Chloride 1,000 ml @ 100 mls/hr Q10H IV 04/29/24 14:00 04/29/24 14:20 100 MLS/HR Aspirin 81 mg DAILY PO 04/30/24 10:00 Atorvastatin Calcium 40 mg HS PO 04/29/24 22:00 04/29/24 22:12 40 MG Acetaminophen 325 mg Q4HP PRN PO 04/29/24 14:00 Docusate Sodium 100 mg DAILY PO 04/30/24 10:00 Ondansetron HCl 4 mg Q4HP PRN IV 04/29/24 14:00 Nitroglycerin 0.4 mg Q5MINP PRN SL 04/29/24 14:45 Metoprolol Succinate 25 mg DAILY PO 04/30/24 10:00 Lisinopril 20 mg DAILY PO 04/30/24 10:00 Hydralazine HCl 10 mg Q6HP PRN IV 04/29/24 16:00 04/29/24 17:26 10 MG Enoxaparin Sodium 40 mg DAILY SC 04/30/24 10:00 Insulin Human Regular HS SC 04/30/24 22:00 Insulin Human Regular AC SC 04/30/24 17:00 Dextrose 50 ml UD PRN IV 04/30/24 12:30 Laboratory Results Laboratory Tests 04/30/24 05:23 Chemistry Test 04/30/24 05:23 Albumin 4.1 g/dL (3.2-4.8) Calcium Level 9.1 mg/dL (8.7-10.4) Total Protein 6.8 g/dL (5.7-8.2) Coagulation Test 04/29/24 18:11 D-Dimer, Quantitative 0.23 mg/L FEU (0.0-0.49) LFT Test 04/30/24 05:23 Alanine Aminotransferase (ALT) 47 U/L (7-40) H Alkaline Phosphatase 94 U/L (46-116) Aspartate Amino Transferase (AST) 35 U/L (13-40) Total Bilirubin 1.1 mg/dL (0.2-1.0) H Labs and/or images reviewed: Labs reviewed by me, Image(s) reviewed by me Assessment/Plan Assessment/Plan Impression: -rule out ACS -diabetes mellitus -primary hypertension -obesity -ETOH use Plan: -patient currently receiving cardiac stress test, results pending -increase regular insulin sliding scale given uncontrolled sugars -ACS protocol -further course of care per Cardiology findings of stress test. Total time spent with patient discussing and formulating plan of care: 35 minutes. This medical document was created using an electronic medical record system with Dragon computerized dictation system. Although this document has been carefully reviewed, there may still be some phonetic and typographical errors. These areas are purely typographical due to imperfections of the software programs, and do not reflect any compromise in the patient's medical care. Plan discussed with: Patient, Other (RN) My Orders Orders - KENDAL SALAZAR NP Procedure Category Date Status Time Insulin R (Human) PHA 04/30/24 In Process (Insulin R) 22:00 Insulin R (Human) PHA 04/30/24 In Process (Insulin R) 17:00 Dextrose 50% Syringe PHA 04/30/24 In Process 12:30 Date of Service: Apr 30, 2024 Billing Provider: KENDAL SALAZAR NP Common Visit Codes: [id number] INP/OBS CARE(HIGH) KENDAL SALAZAR NP Apr 30, 2024 14:04
--- NOTE | 2024-04-30 15:27 | DVHSR ---
APPROVED REPORT Exam: Nuclear Stress Test BMI: 0 Stress Test Details HR Max Heart Rate (APMHR): 178.323590 bpm Target HR (85% APMHR): 151.595846 bpm BP ECG Stress ECG Conclusion Resting images shows near homogeneous uptake of radioactive tracer throughout the myocardium with angela dence of myocardial infarction. Stress images shows near the pars uptake of radioactive tracer throughout the myocardium without evid ence of myocardial ischemia. Well-preserved left ventricular systolic function at 54%. Impression: Negative stress test for ischemia, low risk study. NM EXAM: Myocardial Perfusion REST/STRESS Imaging Protocol: Rest Tc-99m/Stress Tc-99m 1 day Resting Data Rest SPECT myocardial perfusion imaging was performed in supine position 60 minutes following the int ravenous injection of 10.8 mCi of Tc-99m Sestamibi. Time of rest injection: 1055 Time of rest imagin Administration Route: IV Administration Site: Left Arm Exercise Stress At peak stress, the patient was injected intravenously with 32.4mCi of Tc-99m Sestamibi. Time of stress injection: 1202 Time of stress imagin Administration Route: IV Administration Site: Left Arm Patient continued to exercise for 6.75 minute(s). Gated Stress SPECT was performed 30 minutes after stress injection. The images were gated to evaluate regional wall motion and calculate left ventricular ejection fracti on. Stress only was performed in the Supine position. Nuclear Conclusion ECG Findings: negative for ischemia Clinical Findings: negative for ischemia Nuclear Findings: negative for ischemia Exercise Capacity: not assessed Left Ventricular Function: normal Risk Study: low Resting images shows near homogeneous uptake of radioactive tracer throughout the myocardium with angela dence of myocardial infarction. Stress images shows near the pars uptake of radioactive tracer throughout the myocardium without evid ence of myocardial ischemia. Well-preserved left ventricular systolic function at 54%. Impression: Negative stress test for ischemia, low risk study.
[2024-04-30] MEDS ORDERED: ENOXAPARIN SOD 100 MG/1 ML SYRINGE SC SCH (16:00)
[2024-04-30] MEDS: InsuLIN REG 1unit/0.01ml Soln (100units/ml) SC SCH ×2 (17:06→21:30)
--- NOTE | 2024-04-30 17:29 | DVHSR ---
APPROVED REPORT EXAM: Two-dimensional and M-mode echocardiogram with Doppler and color Doppler. Blood Pressure: 205/119 mmHg INDICATION Chest Pain DIMENSIONS LVDd4.1 (3.8-5.7cm)LA (2D)3.2 (1.9-4.0cm)Aortic Root3.4 (2.0-3.7cm) LVDs2.9 (2.5-4.0cm)LA (MM) (1.9-4.0cm)Aortic Cusp Exc2.1 (1.5-2.0cm) EF (%) 56.7 (55-70%)Rt. Atrium3.6 (1.9-4.0cm)Asc. Aorta cm IVSd1.7 (0.7-1.1cm)RV (D)4.0 (1.8-2.4cm) PWd1.2 (0.7-1.1cm) Mitral Valve MitralMitral Stenosis E wave0.61m/sMV Mean GR.mmHg A wave0.85m/sMV Peak GR.mmHg E/A ratio0.72D MVAcm2 DECEL [id number] 1/2 Timems Aortic Valve Aortic ValveAortic Stenosis V11.00m/Ike Mean GR.3mmHg V21.17m/Ike Peak GR.5mmHg Pulmonic Valve V20.71m/s Tricuspid Valve [id number] Other Information Technically limited study due to body habitus. Conclusion Technically limited study due to patient body habitus. Overall preserved left ventricular systolic function estimated ejection fraction 55%. Overall preserved right ventricular systolic function. Normal biatrial size and dimension. No significant valve pathology. No significant pericardial effusion.
[2024-04-30 18:10] LABS: Benzodiazephine Screen, Urine Neg (NEGATIVE)
[2024-04-30 18:50] LABS: Amphetamine Screen, Urine Neg (NEGATIVE); Barbiturate Scree,Urine Neg (NEGATIVE); Cannabinoid Screen, Urine Neg (NEGATIVE); Cocaine Screen, Urine Neg (NEGATIVE); Opiate Scree,Urine Neg (NEGATIVE); Phencyclidine Screen, Urine Neg (NEGATIVE)
[2024-04-30] MEDS: ACETAMINOPHEN 325 MG TAB PO PRN (21:42)
[2024-05-01 01:00] VITALS: BP 146/104; PULSE 90; RESP 18; TEMP 97.8; O2SAT 94
[2024-05-01 05:00] VITALS: BP 149/96; PULSE 96; RESP 18; TEMP 98.3; O2SAT 90
[2024-05-01 08:00] VITALS: PULSE 98; PULSE 99; RESP 17
[2024-05-01 09:00] VITALS: BP 153/101; PULSE 98; RESP 17; TEMP 98.3; O2SAT 95
[2024-05-01] MEDS: METOPROLOL SUCCINATE XL 50 MG TAB PO SCH (10:49)
[2024-05-01] MEDS: metFORMIN HYDROCHLORIDE 850 MG TAB PO ONE (12:08)
[2024-05-01 12:38] VITALS: BP 159/111; PULSE 83; RESP 18; TEMP 97.6; O2SAT 96
[2024-05-01] MEDS ORDERED: LANC-268 XX (13:29)
[2024-05-01] MEDS ORDERED: BLOO1KIT60 XX (13:29)
[2024-05-01] MEDS ORDERED: AMLO1TAB23 PO (13:29)
[2024-05-01] MEDS ORDERED: METF-370 PO (13:29)
--- NOTE | 2024-05-01 13:36 | DVHDS2 ---
Discharge Summary Date of Admission Apr 29, 2024 at 14:31 Date of Discharge: May 01, 2024 Admitting Diagnosis Chest pain rule out ACS Labs/Diagnostic Data: Laboratory Results Test 05/01/24 11:34 04/30/24 17:42 04/30/24 05:23 04/29/24 18:11 POC Glucose 233 mg/dl (70-106) Urine Opiates Screen Neg (NEGATIVE) Urine Fentanyl Screen Neg (NEGATIVE) Urine Barbiturates Screen Neg (NEGATIVE) Urine Phencyclidine Screen Neg (NEGATIVE) Urine Amphetamines Screen Neg (NEGATIVE) Urine Benzodiazepines Screen Neg (NEGATIVE) Urine Cocaine Screen Neg (NEGATIVE) Urine Cannabinoids Screen Neg (NEGATIVE) White Blood Count 9.0 10^3/uL (4.4-10.8) Red Blood Count 5.63 10^6/uL (4.5-5.90) Hemoglobin 16.9 g/dL (13.5-17.5) Hematocrit 48.2 % (41.0-53.0) Mean Corpuscular Volume 85.6 fL (80.0-100.0) Mean Corpuscular Hemoglobin 30.0 pg (28.0-32.0) Mean Corpuscular Hemoglobin Concent 35.1 g/dL (32.0-36.0) Red Cell Distribution Width 12.7 % (11.8-14.3) Platelet Count 229 10^3/uL (140-450) Mean Platelet Volume 9.0 fL (6.9-10.8) Neutrophils (%) (Auto) 57.0 % (37.0-80.0) Lymphocytes (%) (Auto) 32.2 % (10.0-50.0) Monocytes (%) (Auto) 8.1 % (0.0-12.0) Eosinophils (%) (Auto) 1.8 % (0.0-7.0) Basophils (%) (Auto) 0.9 % (0.0-2.0) Neutrophils # (Auto) 5.1 10 ^3/uL (1.6-8.6) Lymphocytes # (Auto) 2.9 10 ^3/uL (0.4-5.4) Monocytes # (Auto) 0.7 10 ^3/uL (0-1.3) Eosinophils # (Auto) 0.2 10 ^3/uL (0-0.8) Basophils # (Auto) 0.1 10 ^3/uL (0-0.2) Nucleated Red Blood Cells 0.2 % Sodium Level 137 mmol/L (136-145) Potassium Level 3.8 mmol/L (3.5-5.1) Chloride Level 104 mmol/L (98-107) Carbon Dioxide Level 23 mmol/L (20-31) Anion Gap 10 (5-15) Blood Urea Nitrogen 13 mg/dL (9-23) Creatinine 0.65 mg/dL (0.700-1.30) Glomerular Filtration Rate Calc 121 mL/min (>90) BUN/Creatinine Ratio 20.0 (10.0-20.0) Serum Glucose 245 mg/dL (74-106) Calcium Level 9.1 mg/dL (8.7-10.4) Total Bilirubin 1.1 mg/dL (0.2-1.0) Aspartate Amino Transferase (AST) 35 U/L (13-40) Alanine Aminotransferase (ALT) 47 U/L (7-40) Alkaline Phosphatase 94 U/L (46-116) Total Protein 6.8 g/dL (5.7-8.2) Albumin 4.1 g/dL (3.2-4.8) D-Dimer, Quantitative 0.23 mg/L FEU (0.0-0.49) Free Thyroxine (T4) Calculated 0.99 ng/dL (0.89-1.76) Free Triiodothyronine (T3) pg/mL 3.40 pg/mL (2.3-4.2) Test 04/29/24 15:56 04/29/24 12:20 04/29/24 11:00 Plasma/Serum Blood Alcohol < 3.0 mg/dL (<10) Troponin I High Sensitivity 3 ng/L (</=54) Prothrombin Time 11.0 sec (9.3-11.8) Prothrombin Time INR 1.04 (0.9-1.15) Hemoglobin A1c 10.9 % A1C (<5.7) Phosphorus Level 3.1 mg/dL (2.4-5.1) Magnesium Level 1.9 mg/dL (1.6-2.6) Triglycerides Level 789 mg/dL (< 150) Cholesterol Level 255 mg/dL (< 200) LDL Cholesterol mg/dL (< 100) HDL Cholesterol 45 mg/dL (40-59) Thyroid Stimulating Hormone (TSH) 0.29 uIU/mL (0.55-4.78) Other Laboratory Tests 04/30/24 05:23 Brief Hx & Hospital Course: History of Present Illness 43-year-old male past medical history hypertension no surgical history chief complaint patient complain of left chest pain that started this morning along with palpitations. Patient states he has has a little bit of shortness of the breath with the palpitations. He states since this morning his symptoms continued to be constant nothing makes it better nothing makes it worse he denies any dizziness no headache. Denies any fever no cough. Patient does say his chest pain gets worse when he is taking a deep breath in. When evaluating patient's labs and imaging patient was given nitro aspirin white count was mildly elevated at 11.2 hemoglobin was 18.5 53.6 sodium was 135 glucose was two 80 without diagnosis of diabetes chest x-ray was unremarkable troponin was negative. With these findings we will admit patient ask for Cardiology evaluation also we will do workup for PE. Course of hospitalization: Patient had CT angiogram of the chest which was negative for PE. Troponins have been negative x3. Cardiology consultation has been obtained with the patient undergoing cardiac stress test which was negative for any ischemic changes. Patient was found to have elevated hemoglobin A1c at 10.8. Patient was also been mildly hypertensive while in the hospital. Long discussion was made with the patient, who reports that he does not see any type of medical providers and does not have any prescribed medications. Diabetic education was given to the patient. Patient will be placed on metformin 500 mg p.o. twice a day, amlodipine 10 mg p.o. daily, as well as the patient being prescribed an Accu- Chek machine for which she was to check twice a day. He will follow up with the discharge Clinic in one week. All questions answered. Physical exam General: Alert and Oriented x3. No acute distress. Well-nourished. Obese Eyes: EOMI. Anicteric. HENT: Moist mucous membranes. Lungs: Clear to auscultation bilaterally. No accessory muscle use. Cardiovascular: Regular rate and rhythm. No murmur. No JVD. Abdomen: Soft, non-tender and non-distended. No palpable masses. Extremities: No edema. Non-tender. Skin: No rashes or lesions. Warm. Neurologic: No focal neurological deficits. CN II-XII grossly intact, but not individually tested. Psychiatric: Cooperative. Appropriate mood and affect. Total time spent with patient discussing and formulating plan of care: 35 minutes. This medical document was created using an electronic medical record system with [employer] system. Although this document has been carefully reviewed, there may still be some phonetic and typographical errors. These areas are purely typographical due to imperfections of the software programs, and do not reflect any compromise in the patient's medical care. Consults/Reason for consult Cardiology: Chest pain, palpitation Condition at Discharge: Fair Final Diagnosis/Problems List Chest Pain, ruled out acute coronary syndrome, probably secondary to accelerated hypertension Secondary Diagnosis: -ruled out ACS -diabetes mellitus -primary hypertension -obesity -ETOH use Discharge Disposition: Home Discharge Instruct/Medications Diet: Consistent carbohydrate Activity: No Restrictions, As Tolerated Follow Up/Referral: Discharge Clinic in one week Medications: Amlodipine 10 mg p.o. daily Metformin 500 mg p.o. b.i.d. Check blood sugars twice a day 36 Discharge Statement: "Patient was advised to return to the ER or call 911 if any headaches, dizziness, shortness of breath, chest pain, abdominal pain, bleeding, fevers, or worsening of medical condition. Patient was counseled about treatment plan, medications, possible side effects, patientverbalized understanding. All questions were answered to the best of my ability. This discharge took greater then 30 minutes in planning, reviewing documentation, counseling the patient, and discussing with other team members." ASSESSMENT ASSESSMENT Assessment Pain, ruled out acute coronary syndrome Date of Service: May 01, 2024 Billing Provider: KENDAL SALAZAR NP Common Visit Codes: 72894-JBV/OBS DISCH DAY >30min KENDAL SALAZAR NP May 01, 2024 13:35
[2024-05-01 15:56] VITALS: BP 153/101; PULSE 98; RESP 17; TEMP 97.4; O2SAT 95
== END 2024-05-01 16:40 | disposition home or self-care (01) | DRG 199 ==
LOC: ER 11:01 → TELE 14:31 → TELE-EAST 16:35
PROVIDERS: ADMIT Nurse Practitioner Family; ATTEND Nurse Practitioner Acute Care
DX: I16.1 Hypertensive emergency (principal); E11.9 Type 2 diabetes mellitus without complications; E66.9 Obesity, unspecified; E78.1 Pure hyperglyceridemia; F10.10 Alcohol abuse, uncomplicated; Z79.4 Long term (current) use of insulin; Z79.899 Other long term (current) drug therapy; Z79.84 Long term (current) use of oral hypoglycemic drugs; Z68.31 Body mass index [BMI] 31.0-31.9, adult; Y90.0 Blood alcohol level of less than 20 mg/100 ml
CPT/HCPCS: 36415; 71045; 71275; 78452; 80048; 80053; 80061; 80307; 80320; 82962; 83036; 83735; 84100; 84439; 84443; 84481; 84484; 85025; 85379; 85610; 93005; 93017; 93306; 96374; 99291; G0378; J1815